=== PATIENT | male | born 1980 | race Caucasian/White ===

== ENCOUNTER 2016-09-14 09:39 | Emergency (ER) | payer BC, OTHER ==
[2016-09-14] MEDS ORDERED: Albuterol/Ipratropium 3.0-0.5 MG/3 ML Neb Soln NEB ONE (10:17)
[2016-09-14] MEDS ORDERED: Albuterol 0.083% 2.5 MG/3 ML Neb Soln NEB ONE (11:03)
[2016-09-14] MEDS ORDERED: Magnesium Sulfate/Water 2 GM in Premix Bag 1 BAG IV ONE (11:05)
[2016-09-14] MEDS ORDERED: methylPREDNISolone Sodium Succinate 125 MG/2 ML SDV IV ONE (11:05)
[2016-09-14] MEDS ORDERED: Sodium Chloride 0.9% 1,000 ML IV SCH (11:15)
[2016-09-14] MEDS ORDERED: Iopamidol 612 MG/ML 100 ML Bottle IV PRN (12:40)
[2016-09-14] MEDS ORDERED: Sodium Chloride 0.9% 80 ML IV SCH (12:45)
--- NOTE | 2016-09-14 15:41 | EDM.PDOC ---
ED HPI GENERAL MEDICAL PROBLEM - General Chief Complaint: Respiratory Problem Stated Complaint: SOB Time Seen by Provider: 09/14/16 10:15 Source of Information: Reports: Patient History Limitations: Reports: No Limitations - History of Present Illness INITIAL COMMENTS - FREE TEXT/NARRATIVE: History of present illness: [This 36-year-old male presented to the emergency department with a history of a cough for the last 6 months. In the last 24 hours to become more short of breath. 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 He has not had any fever or chills with this he was seen perhaps months ago for this cough and treated with a course of antibiotics but it did not help. He's a nonsmoker. 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 Past medical history: As per history of present illness and as reviewed below otherwise noncontributory. Surgical history: As per history of present illness and as reviewed below otherwise noncontributory. Social history: No reported history of drug or alcohol abuse. Family history: As per history of present illness and as reviewed below otherwise noncontributory. Physical exam: HEENT: Atraumatic, normocephalic, pupils reactive, negative for conjunctival pallor or scleral icterus, mucous membranes moist, throat clear, neck supple, nontender, trachea midline. Lungs: Clear to auscultation, breath sounds equal bilaterally, chest nontender. Heart: S1S2, tachycardic, negative for clicks, rubs, or JVD. Abdomen: Soft, nondistended, nontender. Negative for masses or hepatosplenomegaly. Negative for costovertebral tenderness. Pelvis: Stable nontender. Genitourinary: Deferred. Rectal: Deferred. Extremities: Atraumatic, negative for cords or calf pain. Neurovascular unremarkable. Neuro: Awake, alert, oriented. Cranial nerves II through XII unremarkable. Cerebellum unremarkable. Motor and sensory unremarkable throughout. Exam nonfocal. Diagnostics: [EKG is showing sinus tachycardia rate of [address] was done with IV contrast and is unremarkable, his white count is elevated] Therapeutics: [He is requiring 4 L of oxygen via nasal cannula to keep his sats in the mid to low 90s.] Impression: [Tachycardia Hypoxemia] Plan: [This is an undifferentiated patient with an unknown cause for his problems. He needs further workup. We've made arrangements for him to be transferred to [facility], Dr Blanco, hospitalist, accepting. ] Definitive disposition and diagnosis as appropriate pending reevaluation and review of above. - Related Data Allergies Allergy/AdvReac Type Severity Reaction Status Date / Time No Known Allergies Allergy Verified 09/14/16 09:57 Home Meds: Home Meds NK [No Known Home Meds] 09/14/16 [History] Social & Family History - Tobacco Use Smoking Status *Q: Never Smoker - Caffeine Use Caffeine Use: Reports: Soda - Recreational Drug Use Recreational Drug Use: No ED ROS GENERAL - Review of Systems Review Of Systems: ROS reveals no pertinent complaints other than HPI. ED EXAM, GENERAL - Physical Exam Exam: See Below Course - Vital Signs Last Recorded V/S: Last Vital Signs Temp 37.6 C 09/14/16 11:55 Pulse 124 H 09/14/16 15:00 Resp 21 H 09/14/16 15:00 BP 139/92 H 09/14/16 15:00 Pulse Ox 94 L 09/14/16 15:00 - Orders/Labs/Meds Orders: Active Orders 24 hr Category Date Time Status EKG Documentation Completion [RC] ASDIRECTED Care 09/14/16 11:09 Active RT Aerosol Therapy [RC] ASDIRECTED Care 09/14/16 10:17 Active RT Aerosol Therapy [RC] ASDIRECTED Care 09/14/16 11:03 Active Chest 2V [CR] Stat Exams 09/14/16 10:16 Taken Chest w Cont [CT] Stat Exams 09/14/16 12:38 Taken Iopamidol [Isovue-300 (61%)] Med 09/14/16 12:40 Active 100 ml IV . DIRECTED PRN Sodium Chloride 0.9% [Normal Saline] 1,000 ml Med 09/14/16 11:15 Active IV ASDIRECTED Sodium Chloride 0.9% [Normal Saline] 80 ml Med 09/14/16 12:45 Active IV ASDIRECTED EKG 12 Lead [EK] Stat Ther 09/14/16 11:08 Ordered Medication Orders Sodium Chloride (Normal Saline) 1,000 mls @ 500 mls/hr IV ASDIRECTED AYALA Last Admin: 09/14/16 11:26 Dose: 500 mls/hr Sodium Chloride (Normal Saline) 80 mls @ 3 mls/sec IV ASDIRECTED AYALA Iopamidol (Isovue-300 (61%)) 100 ml IV . DIRECTED PRN PRN Reason: RADIOLOGY EXAM Stop: 09/15/16 12:41 Labs: Laboratory Tests 09/14/16 09/14/16 09/14/16 Range/Units 11:21 11:21 11:21 WBC 14.3 H (4.5-11.0) K/uL RBC 5.90 (4.30-5.90) M/uL Hgb 17.5 H (12.0-15.0) g/dL Hct 50.6 (40.0-54.0) % MCV 86 (80-98) fL MCH 30 (27-31) pg MCHC 35 (32-36) % Plt Count 225 (150-400) K/uL Neut % (Auto) 77 H (36-66) % Lymph % (Auto) 11 L (24-44) % Mccreary % (Auto) 10 H (2-6) % Eos % (Auto) 3 (2-4) % Baso % (Auto) 0 (0-1) % PT 11.1 (9.5-12.0) sec INR 1.05 (0.80-1.20) D-Dimer, Quantitative < 100 (0.0-400.0) ng/mL ABG Hemoglobin (13.5-18.0) g/dL ABG Oxyhemoglobin % ABG Carboxyhemoglobin (0.0-1.6) % ABG Methemoglobin % VBG pH (7.350-7.450) VBG pCO2 mm/Hg VBG pO2 mm/Hg VBG HCO3 mmol/L VBG Total CO2 mmol/L VBG O2 Saturation VBG O2 Content %vol VBG Base Excess mm/L O2 Delivery Device Sodium (140-148) mmol/L Potassium (3.6-5.2) mmol/L Chloride (100-108) mmol/L Carbon Dioxide (21-32) mmol/L Anion Gap (5.0-14.0) mmol/L BUN (7-18) mg/dL Creatinine (0.8-1.3) mg/dL Est Cr Clr Drug Dosing mL/min Estimated GFR (MDRD) (>60) Glucose (74-106) mg/dL Lactic Acid (0.4-2.0) mmol/L Calcium (8.5-10.1) mg/dL Total Bilirubin (0.2-1.0) mg/dL AST (15-37) U/L ALT (12-78) U/L Alkaline Phosphatase (46-116) U/L Troponin I (0.000-0.056) ng/mL C-Reactive Protein (0.0-0.3) mg/dL Tjd-[id number] Pept (5-125) pg/mL Total Protein (6.4-8.2) g/dL Albumin (3.4-5.0) g/dL Globulin (2.3-3.5) g/dL Albumin/Globulin Ratio (1.2-2.2) TSH, Ultra Sensitive (0.358-3.740) uIU/mL 09/14/16 09/14/16 09/14/16 Range/Units 11:21 11:21 11:21 WBC (4.5-11.0) K/uL RBC (4.30-5.90) M/uL Hgb (12.0-15.0) g/dL Hct (40.0-54.0) % MCV (80-98) fL MCH (27-31) pg MCHC (32-36) % Plt Count (150-400) K/uL Neut % (Auto) (36-66) % Lymph % (Auto) (24-44) % Mccreary % (Auto) (2-6) % Eos % (Auto) (2-4) % Baso % (Auto) (0-1) % PT (9.5-12.0) sec INR (0.80-1.20) D-Dimer, Quantitative (0.0-400.0) ng/mL ABG Hemoglobin 17.6 (13.5-18.0) g/dL ABG Oxyhemoglobin 58.7 % ABG Carboxyhemoglobin 2.1 H (0.0-1.6) % ABG Methemoglobin 0.5 % VBG pH 7.419 (7.350-7.450) VBG pCO2 42.6 mm/Hg VBG pO2 29.6 mm/Hg VBG HCO3 27.1 mmol/L VBG Total CO2 22.9 mmol/L VBG O2 Saturation 60.3 VBG O2 Content 14.5 %vol VBG Base Excess 2.7 mm/L O2 Delivery Device Room air Sodium 138 L (140-148) mmol/L Potassium 4.3 (3.6-5.2) mmol/L Chloride 101 (100-108) mmol/L Carbon Dioxide 29 (21-32) mmol/L Anion Gap 12.3 (5.0-14.0) mmol/L BUN 14 (7-18) mg/dL Creatinine 0.9 (0.8-1.3) mg/dL Est Cr Clr Drug Dosing 131.93 mL/min Estimated GFR (MDRD) > 60 (>60) Glucose 160 H (74-106) mg/dL Lactic Acid 2.2 H (0.4-2.0) mmol/L Calcium 8.6 (8.5-10.1) mg/dL Total Bilirubin 1.0 (0.2-1.0) mg/dL AST 29 (15-37) U/L ALT 102 H (12-78) U/L Alkaline Phosphatase 98 (46-116) U/L Troponin I < 0.017 (0.000-0.056) ng/mL C-Reactive Protein (0.0-0.3) mg/dL Vwf-[id number]-Nbchhnspwle Pept 22 (5-125) pg/mL Total Protein 7.6 (6.4-8.2) g/dL Albumin 4.3 (3.4-5.0) g/dL Globulin 3.3 (2.3-3.5) g/dL Albumin/Globulin Ratio 1.3 (1.2-2.2) TSH, Ultra Sensitive (0.358-3.740) uIU/mL 09/14/16 Range/Units 11:21 WBC (4.5-11.0) K/uL RBC (4.30-5.90) M/uL Hgb (12.0-15.0) g/dL Hct (40.0-54.0) % MCV (80-98) fL MCH (27-31) pg MCHC (32-36) % Plt Count (150-400) K/uL Neut % (Auto) (36-66) % Lymph % (Auto) (24-44) % Mccreary % (Auto) (2-6) % Eos % (Auto) (2-4) % Baso % (Auto) (0-1) % PT (9.5-12.0) sec INR (0.80-1.20) D-Dimer, Quantitative (0.0-400.0) ng/mL ABG Hemoglobin (13.5-18.0) g/dL ABG Oxyhemoglobin % ABG Carboxyhemoglobin (0.0-1.6) % ABG Methemoglobin % VBG pH (7.350-7.450) VBG pCO2 mm/Hg VBG pO2 mm/Hg VBG HCO3 mmol/L VBG Total CO2 mmol/L VBG O2 Saturation VBG O2 Content %vol VBG Base Excess mm/L O2 Delivery Device Sodium (140-148) mmol/L Potassium (3.6-5.2) mmol/L Chloride (100-108) mmol/L Carbon Dioxide (21-32) mmol/L Anion Gap (5.0-14.0) mmol/L BUN (7-18) mg/dL Creatinine (0.8-1.3) mg/dL Est Cr Clr Drug Dosing mL/min Estimated GFR (MDRD) (>60) Glucose (74-106) mg/dL Lactic Acid (0.4-2.0) mmol/L Calcium (8.5-10.1) mg/dL Total Bilirubin (0.2-1.0) mg/dL AST (15-37) U/L ALT (12-78) U/L Alkaline Phosphatase (46-116) U/L Troponin I (0.000-0.056) ng/mL C-Reactive Protein 1.75 H (0.0-0.3) mg/dL Alb-V-Jnuiyfsbukz Pept (5-125) pg/mL Total Protein (6.4-8.2) g/dL Albumin (3.4-5.0) g/dL Globulin (2.3-3.5) g/dL Albumin/Globulin Ratio (1.2-2.2) TSH, Ultra Sensitive 0.874 (0.358-3.740) uIU/mL Meds: Medications Generic Name Dose Route Start Last Admin Trade Name Freq PRN Reason Stop Dose Admin Sodium Chloride 1,000 mls @ 500 mls/hr 09/14/16 11:15 09/14/16 11:26 Normal Saline IV 500 mls/hr ASDIRECTED AYALA Administration Sodium Chloride 80 mls @ 3 mls/sec 09/14/16 12:45 Normal Saline IV ASDIRECTED AYALA Iopamidol 100 ml 09/14/16 12:40 Isovue-300 (61%) IV 09/15/16 12:41 . DIRECTED PRN RADIOLOGY EXAM Discontinued Medications Generic Name Dose Route Start Last Admin Trade Name Freq PRN Reason Stop Dose Admin Albuterol 2.5 mg 09/14/16 11:03 09/14/16 11:14 Proventil Neb Soln NEB 09/14/16 11:04 2.5 mg ONETIME ONE Administration Albuterol/Ipratropium 3 ml 09/14/16 10:17 09/14/16 10:38 Duoneb 3.0-0.5 Mg/3 Ml NEB 09/14/16 10:18 3 ml ONETIME ONE Administration Magnesium Sulfate 2 gm/ Premix 50 mls @ 12.5 mls/hr 09/14/16 11:05 09/14/16 11:28 IV 09/14/16 15:04 12.5 mls/hr ONETIME ONE Administration Methylprednisolone Sodium Succinate 125 mg 09/14/16 11:05 09/14/16 11:30 Solu-Medrol IV 09/14/16 11:06 125 mg ONETIME ONE Administration Departure - Departure Time of Disposition: 15:40 Disposition: DC/Tfer to Other 70 Condition: fair Clinical Impression: Tachycardia, Hypoxemia - Discharge Information Forms: ED Department Discharge - My Orders Last 24 Hours: My Active Orders 09/14/16 10:16 Chest 2V [CR] Stat 09/14/16 10:17 RT Aerosol Therapy [RC] ASDIRECTED 09/14/16 11:03 RT Aerosol Therapy [RC] ASDIRECTED 09/14/16 11:08 EKG 12 Lead [EK] Stat 09/14/16 11:09 EKG Documentation Completion [RC] ASDIRECTED 09/14/16 11:15 Sodium Chloride 0.9% [Normal Saline] 1,000 ml IV ASDIRECTED 09/14/16 12:38 Chest w Cont [CT] Stat 09/14/16 12:40 Iopamidol [Isovue-300 (61%)] 100 ml IV . DIRECTED PRN 09/14/16 12:45 Sodium Chloride 0.9% [Normal Saline] 80 ml IV ASDIRECTED - Assessment/Plan Last 24 Hours: My Active Orders 09/14/16 10:16 Chest 2V [CR] Stat 09/14/16 10:17 RT Aerosol Therapy [RC] ASDIRECTED 09/14/16 11:03 RT Aerosol Therapy [RC] ASDIRECTED 09/14/16 11:08 EKG 12 Lead [EK] Stat 09/14/16 11:09 EKG Documentation Completion [RC] ASDIRECTED 09/14/16 11:15 Sodium Chloride 0.9% [Normal Saline] 1,000 ml IV ASDIRECTED 09/14/16 12:38 Chest w Cont [CT] Stat 09/14/16 12:40 Iopamidol [Isovue-300 (61%)] 100 ml IV . DIRECTED PRN 09/14/16 12:45 Sodium Chloride 0.9% [Normal Saline] 80 ml IV ASDIRECTED
[2016-09-14 16:11] VITALS: BP 141/95
--- NOTE | 2016-09-16 10:33 | CR ---
Chest 2V HISTORY: No Clinical Info FINDINGS: Heart size within normal limits. Pulmonary vasculature within normal limits. No evidence f or focal consolidation or cardiopulmonary process. IMPRESSION: No radiographic evidence for acute cardiopulmonary process.
== END 2016-09-14 16:25 | disposition other institution (70) ==
LOC: JP.ED 09:39
DX: R00.0 Tachycardia, unspecified (principal); R09.02 Hypoxemia
CPT/HCPCS: 36415; 71020; 71260; 80053; 82803; 83605; 83880; 84443; 84484; 85025; 85379; 85610; 86140; 87804; 93005; 94640; 96365; 96366; 96375; 99285; J2930; J3475; J7040; J7620